=== PATIENT | female | born 1995 | race American Indian/Alaskan Native ===

== ENCOUNTER 2018-11-20 09:20 | Emergency (ER) | payer OTHER ==
[2018-11-20 09:35] VITALS: BP 117/55
--- NOTE | 2018-11-20 10:48 | Emergency Department Report ---
Vomiting/Diarrhea - HPI Chief Complaint: Nausea/Vomiting/Diarrhea Stated Complaint: DIZZY/NAUSEA Time Seen by Provider: 11/20/18 10:17 Duration: 10 days Severity: mild Nausea/Vomiting Severity: Mild Diarrhea Severity: None Pain Location: Other (none) Pain Severity: None Symptoms: Yes Able to Tolerate Fluids, Yes Recent Unusual Foods, No Watery Diarrhea, No Bloody diarrhea, No Fever, No Recent Untreated Water, No Recent use of Antibiotics, No Family w/ Similar Symptoms, No Contacts w/ Similar Symptoms, No Rash, No Hematuria, No Recent URI Symptoms Other History: Patient is 23-year-old female presents to ED complaining of nausea intermittently for the past week and a half. Patient states that she is not concerned about because she had a cycle monthly. She says she's had her regular menstrual cycle months a month now. Patient denies any abdominal pain, diarrhea, vomiting, chest pain, dizziness or headache ED Review of Systems ROS: Stated complaint: DIZZY/NAUSEA Other details as noted in HPI Comment: All other systems reviewed and negative ED Past Medical Hx - Past Medical History Previous Medical History?: No - Surgical History Past Surgical History?: No - Social History Smoking Status: Current Every Day Smoker Substance Use Type: None - Medications Home Medications: Home Medications Medication Instructions Recorded Confirmed Last Taken Type Ibuprofen [Motrin 600 MG tab] 600 mg PO Q8H PRN #30 tablet 03/22/16 Unknown Rx Sulfamethoxazole/Trimethoprim 1 each PO BID #14 tablet 03/22/16 Unknown Rx [Bactrim DS TAB] Ondansetron (Nf) [Zofran TAB] 8 mg PO Q8HR #20 tablet 11/20/18 Unknown Rx Vomiting Diarrhea Exam - Exam General: Vital signs noted. No distress. Alert and acting appropriately. HEENT: Yes Moist Mucous Membranes, No Pharyngeal Erythema, No Pharyngeal Exudates, No Rhinorrhea, No Conjuctival Injection, No Frontal Tenderness, No Maxillary Tenderness Neck: No Adenopathy, No Rigidity Lungs: Yes Clear Lung Sounds, Yes Good Air Exchange, No Wheezes, No Stridor, No Cough, No Nasal Flaring, No Retractions, No Use of Accessory Muscles Heart exam: Regular: Yes, Murmur: No, Tachycardia: No Abdomen: Tenderness: No, Peritoneal Signs: No, Distention: No, Hyperactive Bowel sounds: No Skin exam: Rash: No, Edema: No, Normal turgor: Yes Neurologic: Alert and oriented, no deficits. Musculoskeletal: Unremarkable. ED Course Vital Signs 11/20/18 09:33 Temperature 98.2 F Pulse Rate 66 Respiratory 18 Rate Blood Pressure 117/55 O2 Sat by Pulse 100 Oximetry ED Medical Decision Making - Medical Decision Making 23-year-old female presents with mild intermittent nausea associated with gastroenteritis Vital signs are normal patient is not acutely distress. Patient declined to have any tests and stiffness is not . Upon examination patient had no abdominal tenderness or CVA tenderness. Past sensory normal and discuss increase hydration, Zofran and follow up with primary care physician. Patient is in no acute distress She was discharged with instructions Critical care attestation.: If time is entered above; I have spent that time in minutes in the direct care of this critically ill patient, excluding procedure time. ED Disposition Clinical Impression: Gastroenteritis Disposition: DC-01 TO HOME OR SELFCARE Is pt being admited?: No Does the pt Need Aspirin: No Condition: Stable Instructions: Gastroenteritis (ED), Acute Nausea and Vomiting (ED) Additional Instructions: Make sure to follow up with the primary care physician as discussed. Take all your medications as you've been prescribed. If you have any worsening symptoms or develop new symptoms please return to ED immediately. Prescriptions: Ondansetron (Nf) [Zofran TAB] 8 mg PO Q8HR #20 tablet Referrals: [facility] [Other] - 3-5 Days Forms: Accompanied Note, Work/School Release Form(ED) Time of Disposition: 10:56
== END 2018-11-20 11:17 | disposition home or self-care (01) ==
LOC: ED 09:20
DX: K52.9 Noninfective gastroenteritis and colitis, unspecified (principal); F17.200 Nicotine dependence, unspecified, uncomplicated
CPT/HCPCS: 99282

== ENCOUNTER 2018-12-02 00:46 | Emergency (ER) | payer OTHER ==
[2018-12-02 01:23] VITALS: BP 131/87
== END 2018-12-02 08:09 | disposition left against medical advice (07) ==
LOC: ED 00:46
DX: M54.2 Cervicalgia (principal); Z53.21 Procedure and treatment not carried out due to patient leaving prior to being seen by health care provider

== ENCOUNTER 2019-09-08 20:26 | Emergency (ER) | payer SELFPAY | END 2019-09-08 20:58 | disposition left against medical advice (07) | LOC: ED 20:26 | DX: R11.0 Nausea (principal); Z53.21 Procedure and treatment not carried out due to patient leaving prior to being seen by health care provider ==

== ENCOUNTER 2019-09-11 17:07 | Emergency (ER) | payer SELFPAY ==
[2019-09-11 22:00] LABS: Bacteria,Urine 1+ /HPF (Negative); Bilirubin,Urine NEG (Negative); Blood,Urine NEG (Negative); Color,Urine Yellow (Yellow); Mucus,Urine FEW /HPF; Protein,Urine <15 mg/dL mg/dL (Negative); Urobilinogen,Urine < 2.0 mg/dL (<2.0)
[2019-09-11 22:02] LABS: HCG Qualitative,Urine Positive (Negative)
--- NOTE | 2019-09-11 23:22 | Emergency Department Report ---
ED Female HPI - General Chief complaint: Abdominal Pain Stated complaint: SICKLE CELL/PREG/DISCHARGE Time Seen by Provider: 09/11/19 22:08 Source: patient Mode of arrival: Ambulatory Limitations: No Limitations - History of Present Illness Initial comments: Patient is a 24-year-old woman female who presents for dysuria frequency frequency and lower abdominal pain 3 days, as well as a cycle July 2019. States she discovered her partner is cheating on her question for STI, the abdominal cramping is worsening , patient denies bleeding or spotting. Symptoms exacerbated by nothing symptoms relieved by nothing. MD Complaint: vaginal discharge, pelvic pain, possible STD Onset/Timin -: days(s) Location: suprapubic Radiation: suprapubic Severity: moderate Severity scale (0 -10): 4 Quality: cramping Consistency: constant Improves with: none Worsens with: none Are you Now?: Yes Last Menstrual Period: 07/16/19 EDC: 04/21/20 Associated Symptoms: vaginal discharge, abdominal pain, dysuria. denies: nausea/vomiting, fever/chills, headaches, loss of appetite, hematuria, rash, seizure, shortness of breath, syncope, weakness - Related Data Sexually active: Yes : 2 Para: 2 A: 2 Previous Rx's Medication Instructions Recorded Last Taken Type Ibuprofen [Motrin 600 MG tab] 600 mg PO Q8H PRN #30 tablet 03/22/16 Unknown Rx Sulfamethoxazole/Trimethoprim 1 each PO BID #14 tablet 03/22/16 Unknown Rx [Bactrim DS TAB] Ondansetron (Nf) [Zofran TAB] 8 mg PO Q8HR #20 tablet 11/20/18 Unknown Rx metroNIDAZOLE [metroNIDAZOLE 1 applicatio VG QHS 7 Days #1 09/12/19 Unknown Rx VAGINAL 0.75% gel] 1000units Allergies Allergy/AdvReac Type Severity Reaction Status Date / Time [place] And Derivatives Allergy Itching Verified 03/22/16 04:24 pineapple Allergy Swelling Verified 11/19/15 14:25 ED Review of Systems ROS: Stated complaint: SICKLE CELL/PREG/DISCHARGE Other details as noted in HPI Constitutional: denies: chills, fever Eyes: denies: eye pain, eye discharge, vision change ENT: denies: ear pain, throat pain Respiratory: denies: cough, shortness of breath, wheezing Cardiovascular: denies: chest pain, palpitations Endocrine: no symptoms reported Gastrointestinal: denies: abdominal pain, nausea, vomiting, diarrhea Genitourinary: urgency, dysuria, frequency, discharge. denies: hematuria Musculoskeletal: denies: back pain, joint swelling, arthralgia Skin: denies: rash, lesions Neurological: denies: headache, weakness, paresthesias Psychiatric: denies: anxiety, depression Hematological/Lymphatic: denies: easy bleeding, easy bruising ED Past Medical Hx - Past Medical History Previous Medical History?: No - Surgical History Past Surgical History?: No - Social History Smoking Status: Current Every Day Smoker Substance Use Type: None - Medications Home Medications: Home Medications Medication Instructions Recorded Confirmed Last Taken Type Ibuprofen [Motrin 600 MG tab] 600 mg PO Q8H PRN #30 tablet 03/22/16 Unknown Rx Sulfamethoxazole/Trimethoprim 1 each PO BID #14 tablet 03/22/16 Unknown Rx [Bactrim DS TAB] Ondansetron (Nf) [Zofran TAB] 8 mg PO Q8HR #20 tablet 11/20/18 Unknown Rx metroNIDAZOLE [metroNIDAZOLE 1 applicatio VG QHS 7 Days #1 09/12/19 Unknown Rx VAGINAL 0.75% gel] 1000units ED Physical Exam - General Limitations: No Limitations General appearance: alert, in no apparent distress - Head Head exam: Present: atraumatic, normocephalic - Eye Eye exam: Present: normal appearance, PERRL, EOMI Pupils: Present: normal accommodation - ENT ENT exam: Present: mucous membranes moist - Neck Neck exam: Present: normal inspection, full ROM. Absent: tenderness - Respiratory Respiratory exam: Present: normal lung sounds bilaterally. Absent: respiratory distress, wheezes, stridor, chest wall tenderness - Cardiovascular Cardiovascular Exam: Present: regular rate, normal rhythm, normal heart sounds. Absent: systolic murmur, diastolic murmur, rubs, gallop - GI/Abdominal GI/Abdominal exam: Present: soft, tenderness (superpubic ), normal bowel sounds. Absent: distended, guarding, rebound, rigid, bruit, hernia - Rectal Rectal exam: Present: deferred - Extremities Exam Extremities exam: Present: normal inspection, full ROM, normal capillary refill. Absent: tenderness, pedal edema - Back Exam Back exam: Present: normal inspection, full ROM. Absent: tenderness, CVA tenderness (R), CVA tenderness (L) - Neurological Exam Neurological exam: Present: alert, oriented X3, CN II-XII intact, normal gait - Psychiatric Psychiatric exam: Present: normal affect, normal mood - Skin Skin exam: Present: warm, dry, intact, normal color. Absent: rash ED Medical Decision Making - Radiology Data Radiology results: report reviewed, image reviewed Findings [facility] [address] [place] [address] Ultrasound Report Signed Patient: ZAFAR SELLERS MR#: [id number] : 1995 Acct:[id number] Age/Sex: 24 / F ADM Date: 09/11/19 Loc: ED Attending Dr: Ordering Physician: YAMIL FINCH NP Date of Service: 09/11/19 Procedure(s): US OB transvaginal Accession Number(s): [id number] cc: YAMIL FINCH NP ULTRASOUND OBSTETRIC Indication: pelvic pain pos preg Findings: There is a small fluid collection in the endometrial cavity suggesting small gestational sac Gestational sac size = 0.47 cm = 5 weeks, 2 day(s). Yolk sac or pole is identified There is a 1.8 cm complex cyst in the left ovary. The ovaries are normal. There is no free fluid. Impression: There is a small fluid collection in the endometrial cavity likely representing a gestational sac. This correlates to a 5 week 2 day gestation. No yolk sac or pole is identified at this time. Follow-up ultrasound should be obtained as clinically warranted. Signer Name: Doug Nolasco MD Signed: 09/12/2019 12:19 AM Workstation Name: [id number] Transcribed By: Dictated By: Doug Nolasco MD Electronically Authenticated By: Doug Nolasco MD Signed Date/Time: 09/12/19 0019 DD/ TD/TT: - Medical Decision Making us: fluid collection intrauterine correlating with 5 weeks and 2 days, ua; normal, pt tx'd for STI exposures, will followup with obgyn in 2-3 days , follow up hcg and possible US OB. Critical care attestation.: If time is entered above; I have spent that time in minutes in the direct care of this critically ill patient, excluding procedure time. ED Disposition Clinical Impression: Exposure to STD Qualifiers: Weeks of gestation: less than 8 weeks Qualified Code(s): Z3A.01 - Less than 8 weeks gestation of Disposition: TO HOME OR SELFCARE Is pt being admited?: No Does the pt Need Aspirin: No Condition: Stable Instructions: (ED), Sexually Transmitted Diseases (ED), Safe Sex (ED), Bacterial Vaginosis (ED) Prescriptions: metroNIDAZOLE [metroNIDAZOLE VAGINAL 0.75% gel] 1 applicatio VG QHS 7 Days #1 1000units Referrals: DEVON DODSON MD [Staff Physician] - 3-5 Days Forms: Work/School Release Form(ED) Time of Disposition: 01:04
--- NOTE | 2019-09-12 00:23 | Ultrasound Report ---
ULTRASOUND OBSTETRIC Indication: pelvic pain pos preg Findings: There is a small fluid collection in the endometrial cavity suggesting small gestational sac Gestational sac size = 0.47 cm = 5 weeks, 2 day(s). Yolk sac or pole is identified There is a 1.8 cm complex cyst in the left ovary. The ovaries are normal. There is no free fluid. Impression: There is a small fluid collection in the endometrial cavity likely representing a gestational sac. Th is correlates to a 5 week 2 day gestation. No yolk sac or pole is identified at this time. Foll ow-up ultrasound should be obtained as clinically warranted. Signer Name: Doug Nolasco MD Signed: 09/12/2019 12:19 AM Workstation Name: [id number]
[2019-09-12 01:46] VITALS: BP 127/65
== END 2019-09-12 01:20 | disposition home or self-care (01) ==
LOC: ED 17:07
DX: O26.891 Other specified pregnancy related conditions, first trimester (principal); R10.30 Lower abdominal pain, unspecified; R35.0 Frequency of micturition; O99.331 Smoking (tobacco) complicating pregnancy, first trimester; F17.200 Nicotine dependence, unspecified, uncomplicated; Z91.018 Allergy to other foods; Z3A.01 Less than 8 weeks gestation of pregnancy
CPT/HCPCS: 36415; 76801; 76817; 81001; 81025; 84702; 87210; 87591

== ENCOUNTER 2019-09-30 19:14 | Emergency (ER) | payer SELFPAY ==
[2019-09-30 20:04] VITALS: BP 140/81
[2019-09-30] MEDS ORDERED: ONDANSETRON 4 MG ODT TAB PO ONE (20:07)
[2019-09-30] MEDS ORDERED: ONDANSETRON 4 MG ODT TAB ONE (20:09)
--- NOTE | 2019-09-30 20:10 | Emergency Department Report ---
Chief Complaint: Nausea/Vomiting/Diarrhea Stated Complaint: PREG DIZZY - HPI History of Present Illness: 24 y.o. female with no history of ectopic or miscarriages presents with complaint of vomiting since Tuesday. Patient denies hematemesis. Patient has yet to see an OB. Patient has not had vaginal bleeding. Patient denies fever. Patient complains of mild abdominal pain in suprapubic region. - Exam Vital Signs: Vital Signs 09/30/19 19:26 Temperature 97.8 F Pulse Rate 68 Respiratory 18 Rate Blood Pressure 140/81 O2 Sat by Pulse 100 Oximetry MSE screening note: Focused history and physical exam performed. Due to findings the following was ordered: Poornima had CBC, CMP, B HCG and Ultrasound ordered. ED Disposition for MSE Condition: Stable
--- NOTE | 2019-09-30 22:28 | Emergency Department Report ---
ED General Adult HPI - General Chief complaint: Nausea/Vomiting/Diarrhea Stated complaint: PREG DIZZY Time Seen by Provider: 09/30/19 21:22 Source: patient Mode of arrival: Ambulatory Limitations: No Limitations - History of Present Illness Initial comments: 24 y.o. female with no history of ectopic or miscarriages presents with complaint of vomiting since Tuesday. Patient denies hematemesis. Patient has yet to see an OB. Patient has not had vaginal bleeding. Patient denies fever. Patient complains of mild abdominal pain in suprapubic region. Onset/Timin -: days(s) Location: abdomen Severity scale (0 -10): 0 Associated Symptoms: nausea/vomiting - Related Data Previous Rx's Medication Instructions Recorded Last Taken Type Ibuprofen [Motrin 600 MG tab] 600 mg PO Q8H PRN #30 tablet 03/22/16 Unknown Rx Sulfamethoxazole/Trimethoprim 1 each PO BID #14 tablet 03/22/16 Unknown Rx [Bactrim DS TAB] Ondansetron (Nf) [Zofran TAB] 8 mg PO Q8HR #20 tablet 11/20/18 Unknown Rx metroNIDAZOLE [metroNIDAZOLE 1 applicatio VG QHS 7 Days #1 09/12/19 Unknown Rx VAGINAL 0.75% gel] 1000units Doxylamine Succinate [Unisom] 25 mg PO BID PRN #20 tablet 10/01/19 Unknown Rx Pyridoxine HCl [Vitamin B-6 100MG 100 mg PO DAILY #20 tablet 10/01/19 Unknown Rx TAB] Allergies Allergy/AdvReac Type Severity Reaction Status Date / Time [place] And Derivatives Allergy Itching Verified 03/22/16 04:24 dyan Allergy Swelling Verified 09/30/19 19:30 pineapple Allergy Swelling Verified 11/19/15 14:25 ED Review of Systems ROS: Stated complaint: PREG DIZZY Other details as noted in HPI Comment: All other systems reviewed and negative ED Past Medical Hx - Past Medical History Previous Medical History?: No - Surgical History Past Surgical History?: No - Social History Smoking Status: Never Smoker Substance Use Type: None - Medications Home Medications: Home Medications Medication Instructions Recorded Confirmed Last Taken Type Ibuprofen [Motrin 600 MG tab] 600 mg PO Q8H PRN #30 tablet 03/22/16 Unknown Rx Sulfamethoxazole/Trimethoprim 1 each PO BID #14 tablet 03/22/16 Unknown Rx [Bactrim DS TAB] Ondansetron (Nf) [Zofran TAB] 8 mg PO Q8HR #20 tablet 11/20/18 Unknown Rx metroNIDAZOLE [metroNIDAZOLE 1 applicatio VG QHS 7 Days #1 09/12/19 Unknown Rx VAGINAL 0.75% gel] 1000units Doxylamine Succinate [Unisom] 25 mg PO BID PRN #20 tablet 10/01/19 Unknown Rx Pyridoxine HCl [Vitamin B-6 100MG 100 mg PO DAILY #20 tablet 10/01/19 Unknown Rx TAB] ED Physical Exam - General Limitations: No Limitations General appearance: alert, in no apparent distress - Head Head exam: Present: atraumatic, normocephalic - Eye Eye exam: Present: normal appearance - ENT ENT exam: Present: mucous membranes moist - Neck Neck exam: Present: normal inspection - Respiratory Respiratory exam: Present: normal lung sounds bilaterally. Absent: respiratory distress - Cardiovascular Cardiovascular Exam: Present: regular rate, normal rhythm. Absent: systolic murmur, diastolic murmur, rubs, gallop - GI/Abdominal GI/Abdominal exam: Present: soft, normal bowel sounds - Extremities Exam Extremities exam: Present: normal inspection - Back Exam Back exam: Present: normal inspection - Neurological Exam Neurological exam: Present: alert, oriented X3 - Psychiatric Psychiatric exam: Present: normal affect, normal mood - Skin Skin exam: Present: warm, dry, intact, normal color. Absent: rash ED Course Vital Signs 09/30/19 19:26 Temperature 97.8 F Pulse Rate 68 Respiratory 18 Rate Blood Pressure 140/81 O2 Sat by Pulse 100 Oximetry ED Medical Decision Making - Lab Data Result diagrams: 09/30/19 22:41 09/30/19 22:41 - Radiology Data Radiology results: report reviewed Patient: ZAFAR SELLERS MR#: [id number] : 1995 Acct:[id number] Age/Sex: 24 / F ADM Date: 09/30/19 Loc: ED Attending Dr: Ordering Physician: NGOZI GRECO MD Date of Service: 09/30/19 Procedure(s): US OB <= 14 weeks fetus Accession Number(s): [id number] cc: NGOZI GRECO MD ULTRASOUND OBSTETRIC INDICATION / CLINICAL INFORMATION: abdominal pain. Clinical Gestational Age (GA): 8 weeks 0 days TECHNIQUE: Transabdominal. COMPARISON: Prior study, 09/11/2019 FINDINGS: GESTATIONAL SAC: Well-defined oval shape and intrauterine in location. YOLK SAC: No significant abnormality. EMBRYO/FETUS: No significant abnormality. - [place]-Rump Length = 1.05 cm = 7 weeks, 1 day(s). - Heart Rate, beats per minute (if present) = 1 52 bpm ADNEXA: Small complex cyst is noted in the left ovary measuring 1.5 cm, most likely corpus luteal cyst. Right ovary is unremarkable. FREE FLUID: None. ADDITIONAL FINDINGS: None. IMPRESSION: 1. Single, living intrauterine with estimated sonographic age of 7 weeks, 1 day(s). 2. No other significant finding. Signer Name: Ofe Fuentes MD Signed: 09/30/2019 10:32 PM Workstation Name: [id number] Transcribed By: Dictated By: Ofe Fuentes MD Electronically Authenticated By: Ofe Fuentes MD Signed Date/Time: 09/30/192231 DD/ 29 TD/TT: - Medical Decision Making 24 y.o. female with no history of ectopic or miscarriages presents with complaint of vomiting since Tuesday. Patient denies hematemesis. Patient has yet to see an OB. Patient has not had vaginal bleeding. Patient denies fever. Patient complains of mild abdominal pain in suprapubic region. Ultrasound shows patient is 8 weeks . Labs are stable no signs of dehydration vital signs are stable no signs of dehydration or tachycardic no fever. Critical care attestation.: If time is entered above; I have spent that time in minutes in the direct care of this critically ill patient, excluding procedure time. ED Disposition Clinical Impression: Hyperemesis gravidarum before end of 22 week gestation with carbohydrate depletion Disposition: DC-01 TO HOME OR SELFCARE Is pt being admited?: No Does the pt Need Aspirin: No Condition: Stable Instructions: Hyperemesis Gravidarum (ED) Additional Instructions: Ultrasound shows that you are 8 weeks . Labs are stable. Take medication as needed for nausea and vomiting. Follow-up with your [facility]. I will refer you to 1 below if you do not have one. Increase your fluid intake advance her diet as tolerated. Prescriptions: Doxylamine Succinate [Unisom] 25 mg PO BID PRN #20 tablet PRN Reason: Nausea And Vomiting Pyridoxine HCl [Vitamin B-6 100MG TAB] 100 mg PO DAILY #20 tablet Referrals: PRIMARY CARE, [Primary Care Provider] - 3-5 Days [facility] [Provider Group] - 3-5 Days [facility] [Provider Group] - 3-5 Days [facility] [Provider Group] - 3-5 Days
--- NOTE | 2019-09-30 22:37 | Ultrasound Report ---
ULTRASOUND OBSTETRIC INDICATION / CLINICAL INFORMATION: abdominal pain. Clinical Gestational Age (GA): 8 weeks 0 days TECHNIQUE: Transabdominal. COMPARISON: Prior study, 09/11/2019 FINDINGS: GESTATIONAL SAC: Well-defined oval shape and intrauterine in location. YOLK SAC: No significant abnormality. EMBRYO/FETUS: No significant abnormality. - [place]-Rump Length = 1.05 cm = 7 weeks, 1 day(s). - Heart Rate, beats per minute (if present) = 1 52 bpm ADNEXA: Small complex cyst is noted in the left ovary measuring 1.5 cm, most likely corpus luteal cys t. Right ovary is unremarkable. FREE FLUID: None. ADDITIONAL FINDINGS: None. IMPRESSION: 1. Single, living intrauterine with estimated sonographic age of 7 weeks, 1 day(s). 2. No other significant finding. Signer Name: Ofe Fuentes MD Signed: 09/30/2019 10:32 PM Workstation Name: [id number]
[2019-09-30 23:26] LABS: Basophils % (Auto) 0.3 % (0.0-1.8); Hematocrit 38.1 % (30.3-42.9); Lymphocytes # (Auto) 1.5 K/mm3 (1.2-5.4); Lymphocytes % (Auto) 24.1 % (13.4-35.0); Mean Corpuscular HGB Conc 34 % (30-34); Mean Corpuscular Volume 89 fl (79-97); Monocytes # (Auto) 0.4 K/mm3 (0.0-0.8); Monocytes % (Auto) 6.8 % (0.0-7.3); Platelet Count 247 K/mm3 (140-440); Red Blood Count 4.27 M/mm3 (3.65-5.03); Red Cell Distribution Width 12.4 % (13.2-15.2)
[2019-10-01 00:02] LABS: Alanine Aminotransferase 9 units/L (7-56); Albumin 4.3 g/dL (3.9-5); BUN/Creatinine Ratio 8; Blood Urea Nitrogen 5 mg/dL (7-17); Calcium 9.2 mg/dL (8.4-10.2); Hemolysis Index 0
== END 2019-10-01 00:40 | disposition home or self-care (01) ==
LOC: ED 19:14
DX: O21.0 Mild hyperemesis gravidarum (principal); Z91.018 Allergy to other foods; Z79.1 Long term (current) use of non-steroidal anti-inflammatories (NSAID); Z79.899 Other long term (current) drug therapy; Z3A.01 Less than 8 weeks gestation of pregnancy
CPT/HCPCS: 36415; 76801; 80053; 83690; 84702; 85025; Q0162

== ENCOUNTER 2019-11-05 21:38 | Emergency (ER) | payer OTHER ==
--- NOTE | 2019-11-05 21:48 | Emergency Department Report ---
Blank Doc - Documentation Documentation: 24-year-old female taht presents with vaginal bleeding and pelvic pain. Patient is 13 weeks . This initial assessment/diagnostic orders/clinical plan/treatment(s) is/are subject to change based on patient's health status, clinical progression and re- assessment by fellow clinical providers in the ED. Further treatment and workup at subsequent clinical providers discretion. Patient/guardians urged not to elope from the ED as their condition may be serious if not clinically assessed and managed. Initial orders include: 1- Patient sent to [facility] for further evaluation and treatment 2- labs 3- UA 4- UIS OB
[2019-11-05 21:50] VITALS: BP 131/71
[2019-11-05 22:11] LABS: Basophils % (Auto) 0.6 % (0.0-1.8); Eosinophils % (Auto) 0.6 % (0.0-4.3); Hematocrit 38.2 % (30.3-42.9); Hemoglobin 12.7 gm/dl (10.1-14.3); Lymphocytes # (Auto) 1.9 K/mm3 (1.2-5.4); Lymphocytes % (Auto) 29.5 % (13.4-35.0); Mean Corpuscular HGB Conc 33 % (30-34); Mean Corpuscular Volume 92 fl (79-97); Monocytes # (Auto) 0.4 K/mm3 (0.0-0.8); Monocytes % (Auto) 6.3 % (0.0-7.3); Platelet Count 309 K/mm3 (140-440); Red Blood Count 4.16 M/mm3 (3.65-5.03); Red Cell Distribution Width 13.3 % (13.2-15.2)
--- NOTE | 2019-11-05 23:59 | Ultrasound Report ---
US OB transvaginal, US OB <= 14 weeks fetus INDICATION / CLINICAL INFORMATION: vaginal bleeding. COMPARISON: 09/30/2019 FINDINGS: A single fetus is seen in the uterus. No heart tones were obtained. A small subchorionic hemorr mya was identified. Small cysts are seen in both ovaries IMPRESSION: Single fetus in the uterus without heart tones suggesting demise Signer Name: Bolivar Steiner MD FACR Signed: 11/05/2019 11:55 PM Workstation Name: [id number]
[2019-11-06] MEDS ORDERED: HYDROcodone/ACETAMINOPHEN 7.5-325MG TAB PO ONE (01:49)
--- NOTE | 2019-11-06 01:54 | Emergency Department Report ---
ED Female HPI - General Chief complaint: Vaginal Bleeding Stated complaint: 13WKS PREG/CRAMPING/BLEEDING Time Seen by Provider: 11/05/19 21:47 Source: patient Mode of arrival: Ambulatory Limitations: No Limitations - History of Present Illness Initial comments: 24-year-old -[place] female reports that she is 13 weeks presents to the emergency room stating she is having spotting for 1 week. Patient states that today is gotten much darker. Patient also complains of pelvic cramping and lower back pain. Patient reports last week she was considered an and had an ultrasound done and the next day she had 1 large clot. Patient is 3 para 0 with 2 abortions. Patient's last menstrual period was 08/10/2019. Patient currently does not have an OB provider. MD Complaint: vaginal bleeding, pelvic pain Onset/Timin -: week(s) (Vaginal bleeding), This morning (Pelvic cramping) Severity scale (0 -10): 8 Quality: cramping Consistency: intermittent Worsens with: none Are you Now?: Yes Last Menstrual Period: 08/10/19 EDC: 05/16/20 Associated Symptoms: vaginal bleeding, other (Pelvic cramping) - Related Data Previous Rx's Medication Instructions Recorded Last Taken Type Ibuprofen [Motrin 600 MG tab] 600 mg PO Q8H PRN #30 tablet 03/22/16 Unknown Rx Sulfamethoxazole/Trimethoprim 1 each PO BID #14 tablet 03/22/16 Unknown Rx [Bactrim DS TAB] Ondansetron (Nf) [Zofran TAB] 8 mg PO Q8HR #20 tablet 11/20/18 Unknown Rx metroNIDAZOLE [metroNIDAZOLE 1 applicatio VG QHS 7 Days #1 09/12/19 Unknown Rx VAGINAL 0.75% gel] 1000units Doxylamine Succinate [Unisom] 25 mg PO BID PRN #20 tablet 10/01/19 Unknown Rx Pyridoxine HCl [Vitamin B-6 100MG 100 mg PO DAILY #20 tablet 10/01/19 Unknown Rx TAB] Allergies Allergy/AdvReac Type Severity Reaction Status Date / Time [employer] Allergy Itching Verified 03/22/16 04:24 dyan Allergy Swelling Verified 09/30/19 19:30 pineapple Allergy Swelling Verified 11/19/15 14:25 ED Review of Systems ROS: Stated complaint: 13WKS PREG/CRAMPING/BLEEDING Other details as noted in HPI Comment: All other systems reviewed and negative ED Past Medical Hx - Past Medical History Previous Medical History?: No - Surgical History Past Surgical History?: No - Social History Smoking Status: Never Smoker Substance Use Type: None - Medications Home Medications: Home Medications Medication Instructions Recorded Confirmed Last Taken Type Ibuprofen [Motrin 600 MG tab] 600 mg PO Q8H PRN #30 tablet 03/22/16 Unknown Rx Sulfamethoxazole/Trimethoprim 1 each PO BID #14 tablet 03/22/16 Unknown Rx [Bactrim DS TAB] Ondansetron (Nf) [Zofran TAB] 8 mg PO Q8HR #20 tablet 11/20/18 Unknown Rx metroNIDAZOLE [metroNIDAZOLE 1 applicatio VG QHS 7 Days #1 09/12/19 Unknown Rx VAGINAL 0.75% gel] 1000units Doxylamine Succinate [Unisom] 25 mg PO BID PRN #20 tablet 10/01/19 Unknown Rx Pyridoxine HCl [Vitamin B-6 100MG 100 mg PO DAILY #20 tablet 10/01/19 Unknown Rx TAB] ED Physical Exam - General Limitations: No Limitations General appearance: alert, in distress - Head Head exam: Present: atraumatic, normocephalic - Eye Eye exam: Present: normal appearance - ENT ENT exam: Present: mucous membranes moist - Extremities Exam Extremities exam: Present: normal inspection - Neurological Exam Neurological exam: Present: alert, oriented X3, normal gait - Psychiatric Psychiatric exam: Present: normal affect, normal mood - Skin Skin exam: Present: warm, dry, intact, normal color. Absent: rash ED Course Vital Signs 11/05/19 11/06/19 21:49 02:13 Temperature 98.4 F Pulse Rate 81 Respiratory 18 16 Rate Blood Pressure 131/71 O2 Sat by Pulse 99 Oximetry ED Medical Decision Making - Lab Data Result diagrams: 11/05/19 21:50 - Medical Decision Making 24-year-old -[place] female reports that she is 13 weeks presents to the emergency room stating she is having spotting for 1 week. Patient states that today is gotten much darker. Patient also complains of pelvic cramping and lower back pain. Patient reports last week she was considered an and had an ultrasound done and the next day she had 1 large clot. Patient is 3 para 0 with 2 abortions. Patient's last menstrual period was 08/10/2019. Patient currently does not have an OB provider. hCG is 1120, ultrasound shows a 13-week gestation with no heart rate concern for demise. Patient CBC is normal no signs of anemia. Spoke to Dr. Cordell Richards SENIOR GRADUATE ADVISOR. He recommends patient to follow-up at [facility] for D&C. Patient can take Tylenol as needed for cramps. Critical care attestation.: If time is entered above; I have spent that time in minutes in the direct care of this critically ill patient, excluding procedure time. ED Disposition Clinical Impression: Miscarriage Disposition: [id number] TO HOME OR SELFCARE Is pt being admited?: No Does the pt Need Aspirin: No Condition: Stable Instructions: Spontaneous Miscarriage (ED) Additional Instructions: Tylenol as needed for pain management. Please follow-up at [facility] for D&C. Their information is listed below for your convenience. Referrals: [facility] [Primary Care Provider] - 3-5 Days [facility] [Provider Group] - 3-5 Days Forms: Work/School Release Form(ED)
[2019-11-06 02:40] LABS: Bilirubin,Urine NEG (Negative); Blood,Urine LG (Negative); Color,Urine Yellow (Yellow); Mucus,Urine FEW /HPF; Protein,Urine <15 mg/dL mg/dL (Negative); Urobilinogen,Urine < 2.0 mg/dL (<2.0)
== END 2019-11-06 03:05 | disposition home or self-care (01) ==
LOC: ED 21:38
DX: O03.9 Complete or unspecified spontaneous abortion without complication (principal); Z91.018 Allergy to other foods
CPT/HCPCS: 36415; 76801; 76817; 81001; 84702; 85025; 86900; 86901

== ENCOUNTER 2021-12-27 17:51 | Emergency (ER) | payer SELFPAY ==
[2021-12-27 18:06] VITALS: BP 127/85
== END 2021-12-27 20:51 | disposition left against medical advice (07) ==
LOC: ED 17:51
DX: H92.02 Otalgia, left ear (principal); Z53.21 Procedure and treatment not carried out due to patient leaving prior to being seen by health care provider

== ENCOUNTER 2021-12-27 21:40 | Emergency (ER) | payer SELFPAY ==
[2021-12-27 21:50] VITALS: BP 127/85
== END 2021-12-27 23:45 | disposition left against medical advice (07) ==
LOC: ED 21:40
DX: H92.09 Otalgia, unspecified ear (principal); R42 Dizziness and giddiness; Z53.21 Procedure and treatment not carried out due to patient leaving prior to being seen by health care provider